=== PATIENT | male | born 1955 | race Caucasian/White ===

== ENCOUNTER 2025-06-11 09:14 | Emergency (ER) | payer BC, SELFPAY ==
[2025-06-11] VITALS (10 sets, daily range): BP systolic 176–191; BP diastolic 97–109; PULSE 49–55; RESP 6–18; TEMP 36.2; O2SAT 96–99; BMI 23.2
--- OUTSIDE RECORDS SUMMARY | 2025-06-11 09:16 | XMS_ITS | Clinical Summary ---
Author Organization [facility] Address [address] [place] [id number] Care Team Providers Care Banquet Waiter/Waitress Name Role Phone Unavailable Primary Care Provider Unavailabl e Allergies No known active allergies Medications losartan 50 mg tabletIndication s:HTN (hypertension) TAKE 1 TABLET(50 MG) BY MOUTH EVERY DAY 90 Tablet 03/22/2025 Active Active Problems Problem Noted Date Diagnosed Date History of cold sores 08/30/2014 Hyperplastic colon polyp 01/10/2011 Overview (01/10/2011): Colonoscopy 12/2010 polyp repeat in 10 years Encounters Date Type Department Care Team Description 03/21/2025 Refill [facility] [address] [place] [address] VotelRichardson MD Refill Request (Losartan) from Last 3 Months Immunizations Immunization Administration Dates Next Due AMB Influenza, IIV3 (Age >=3 years)(Flu Clinic Only) 08/18/2012,09/09/2008 AMB Influenza, IIV4 PF (=>6 mos Flulaval,Fluzone Fluarix)(Flu Clinic Only) 09/07/2019,09/13/2015,09/26/2014 COVID-19 VACCINE SPIKEVAX (M ODERNA 50MCG/0.5ML) 12YO+ PFS 08/29/2023 COVID-19 vaccine (Pfizer-Bio NTech 30mcg/0.3mL) 12YO+ SHYANNE-SUCROSE PF MDV 03/28/2022 Hepatitis A (Adult) 08/29/2023,08/23/2009 Influenza A (H1N1), Inactivated 08/29/2009 Influenza, IIV3 (Age >=3 years) 09/10/20 13,07/23/2010,09/03/2007,2005 Influenza, IIV4 09/24/2017,10/18/2016 Influenza, IIV4 (=>6mos) MDV 07/03/2020 Influenza, Inactivated AIIV4 (Age 65+ Years) Preserv Free 08/29/2023 Influenza, Inactivated IIV3 (Age 65+ Years) Preserv Free 10/22/2024 Influenza, Injectable, Mdck, Quadrivalent, W/preservative 07/10/2021 Influenza,CCIIV4 PRESERV FREE 07/02/2022 Tdap 03/28/2022,08/23/2009 Typhoid (injectable) 07/28/2009 Typhoid (oral) 09/09/2023 Yellow Fever 08/23/2009,09/02/2003 Zoster (Zostavax-ZVL, live) 09/10/2013 Social History Tobacco Use Types Packs/Day Years Used Date Smoking Tobacco: Never Smokeless Tobacco: Never Tobacco Cessation:Counseling Given: Yes Alcohol Use Standard Drinks/Week Comments Yes 0 (1 standard drink = 0.6 oz pur e alcohol) occ Social Connections Answer Date Recorded Do you often feel lonely or isolated from those around you? 0 11/11/2023 Financial Resource Strain Answer Date R ecorded Difficulty of Paying Living Expenses 3 11/11/2023 Difficulty of Paying Living Expenses Not on file 11/11/2023 Food Insecurity Answer Date Recorded Do you worry your food will run out before you are able to buy more? 1 11/11/2023 Transportation Needs Answer Date Record ed Does lack of transportation keep you from medica l appointments? 1 11/11/2023 Does lack of transportation keep you from work, meetings or getting things that you need? 1 11/11/2023 Housing Stability Answer Date Recorded What is your housing situation today? 1 11/11/2023 Utilities Answer Date Recorded Do you have trouble paying f or utilities (for example, heat, electricity, water, phone)? 1 11/11/2023 Sex and Gender Information Value Date Recorded Sex Assigned at Not on file Legal Sex Male 5:27 AM [employer] Gender Identity Not on file Sexual Orientation Not on file Obstetrics History Last Filed Vital Signs Vital Sign Reading Time Taken Comments Blood Pressure 127/77 11/11/2023 7:32 AM [employer] Pulse 66 11/11/2023 7:32 AM [employer] Temperature 36.4 C (97.6 F) 10/18/2016 8:30 AM [employer] Respiratory Rate - - Oxygen Saturation 98% 11/11/2023 7:32 AM [employer] Inhaled Oxygen Concentration - - Weight 75.9 kg (167 lb 4.8 oz) 11/11/2023 7:32 A M [employer] Height 180.1 cm (5' 10.9) 11/11/2023 7:32 AM CS T Body Mass Index 23.4 11/11/2023 7:32 AM [employer] Plan of Treatment Health Maintenance Due Date Last Done Comments Depression screening for age 12+ 1969 Hepatitis C screening for age 18-79 1975 Lipids for age 45-75 2002 Pneumococcal series for age 50+ (1 of 1 - PCV) 2007 Zoster (shingles) series for age 50+ (2 of 3) 11/05/2013 09/10/2013 Colonoscopy through age 75 01/10/2021 01/10/2011, COVID-19 vaccine series ( season) 2024 08/29/2023, 07/02/2022, 03/28/2022, Additional history exists BMI (ht and wt on same day) for age 18+ 11/11/2024 11/11/2023, 10/09/2023, 09/09/2023 Influenza Vaccine (#1) 2025 , 08/29/2023, 07/02/2022, Additional history exists Tetanus booster 03/28/2032 03/28/2022, 08/23/2009 RSV vaccine for adults or (1 - 1-dose 75+ series) 2032 Hepatitis B series for 19+ Aged Out N o longer eligible based on patient's age to complete this topic
--- NOTE | 2025-06-11 09:40 | CRLHL7_ITS ---
For Patients: As a result of the Century Cures Act, medical imaging exams and procedure reports are released immediately into your electronic medical record. You may view this report before your referring provider. If you have questions, please contact your health care provider. INDICATION: Chest pain TECHNIQUE: Chest 1 view COMPARISON: None FINDINGS: Cardiovascular and mediastinum: Heart size and vasculature are normal in caliber and appearance. Lungs and pleural spaces: Lungs are clear. No sign of infiltrate or mass. No sign of pleural effusion. No pneumothorax. Bones and soft tissues: No significant findings. IMPRESSION: No acute findings. Dictated by Myron Oh MD @ 06/11/2025 10:18:49 AM (Electronically Signed)
--- NOTE | 2025-06-11 09:52 | ED_ITS ---
HPI - Chest Pain General Chief Complaint: Chest Pain Stated Complaint: chest pain, jaw pain, heartburn Time Seen by Provider: 06/11/25 09:52 History of Present Illness HPI narrative: Patient is a 69-year-old gentleman with history of hypertension a very strong family history of heart disease who over last 24 hours is been unable to complete his normal bike ride of 13 miles. Yesterday he came home with chest pain radiating to his neck and jaw and right arm which improved with rest. He spent most of the evening belching last night and today he was set to start a 25 mi bike ride but had cut it off after 1 or 2 miles. Symptoms again reproducible with chest pain neck pain severe pressure in his chest. He brought to the emergency room where EKG initially shows some questionable ST segment elevation in 2 3 and V4 V5 V6. Patient's pain worsened in these became more pronounced. This does not yet meet criteria for STEMI. Patient has taken no medication to this point other than his usual losartan. Related Data Home Medications ?Medication ?Instructions ?Recorded ?Confirmed losartan 50 mg tablet 50 mg PO DAILY 12/07/2305/21 Previous Rx's ?Medication ?Instructions ?Recorded codeine 10 mg-guaifenesin 100 mg/5 5 ml PO Q6H #120 mL 12/14/23 mL oral liquid Held on 06/11/25. Instructions: Doctor's Order Allergies Allergy/AdvReac Type Severity Reaction Status Date / Time No Known Drug Allergies Allergy Verified 12/14/23 11:03 Review of Systems Status of ROS Reports: 10 or more systems reviewed and unremarkable except as noted in History and below [facility] Medical History Chest congestion ?R09.89 - Other specified symptoms and signs involving the circulatory and respiratory systems (ICD-10) Exam Narrative Exam Narrative: EXAM GENERAL: Patient appears comfortable and well. EYES: No scleral icterus. LYMPH: No supraclavicular or cervical lymphadenopathy. SKIN: Visible skin seen during exam normal or with benign process only. EXT: No dependent lower extremity pedal edema. HEART: Regular rate and rhythm with no murmurs, rubs, or gallops. LUNGS: Clear to auscultation bilaterally with no crackles or wheezes. ABD: Soft, non tender, non distended. PSYCH: Good eye contact, speech is not pressured. Const Vital Signs, click to edit/add: Vital Signs - 24 hr 06/11/25 09:31 06/11/25 09:34 06/11/25 09:49 Temperature 97.2 F L Pulse Rate 54 L 51 L Pulse Rate [Pulse Oximeter] 52 L Respiratory Rate 16 18 Blood Pressure [Left Upper Arm] 191/109 H Pulse Oximetry 97 98 97 Oxygen Delivery Method Room Air 06/11/25 10:00 Temperature Pulse Rate 49 L Pulse Rate [Pulse Oximeter] Respiratory Rate 10 L Blood Pressure [Left Upper Arm] Pulse Oximetry 99 Oxygen Delivery Method Course Course ED Course: I am concerned by the initial EKGs but I do not think we need STEMI activation until we get our labs back initially. Review the case with Cardiology. Standard cardiac workup is ordered. Reevaluation(s) Reevaluation #1: Patient's troponin comes back at 0.27. Aspirin 325 given. EKGs faxed to Cardiology. Consultation pending. Vital Signs Vital signs: Initial Vital Signs Temperature 97.2 F L 06/11/25 09:31 Temperature Source Temporal Artery Scan 06/11/25 09:31 Pulse Rate 52 L 06/11/25 09:31 Respiratory Rate 16 06/11/25 09:31 Blood Pressure 191/109 H 06/11/25 09:31 Blood Pressure Mean 136 H 06/11/25 09:31 Pulse Oximetry 97 06/11/25 09:31 Oxygen Delivery Method Room Air 06/11/25 09:31 Vital Signs Temperature 97.2 F L 06/11/25 09:31 Pulse Rate 52 L 06/11/25 09:31 Respiratory Rate 16 06/11/25 09:31 Blood Pressure 191/109 H 06/11/25 09:31 Pulse Oximetry 97 06/11/25 09:31 Oxygen Delivery Method Room Air 06/11/25 09:31 Temperature 97.2 F L 06/11/25 09:31 Pulse Rate 49 L 06/11/25 10:00 Respiratory Rate 10 L 06/11/25 10:00 Blood Pressure 191/109 H 06/11/25 09:31 Pulse Oximetry 99 06/11/25 10:00 Oxygen Delivery Method Room Air 06/11/25 09:31 Medications Administered Medications: Generic Name Dose Route Start Last Admin Trade Name Freq PRN Reason Stop Dose Admin Aspirin 324 mg 06/11/25 10:39 06/11/25 10:46 Aspirin 81 Mg Tab.Chew PO 06/11/25 10:40 324 mg ONCE ONE Administration MDM - Chest Pain MDM Narrative Medical decision making narrative: Patient presents with acute coronary syndrome with symptoms starting yesterday. The patient initially had some questionable ST changes. I did repeat the EKG in the lateral ST segment elevation seem to Flattening. I reviewed these with Cardiology at this time patient is being sent directly to the laborer pipelines. Troponin has been found to be 0.27. He has been given aspirin 325 will be started on weight based heparin. His pulse is 55 no beta-jas to be given. Patient will be transferred via EMS. Lab Data Labs: Lab Results 06/11/25 Range/Units 09:45 WBC 6.31 (4.50-11.00) K/uL RBC 4.55 (4.30-5.90) m/uL Hgb 14.1 (13.5-17.5) gm/dL Hct 41.7 (37.0-53.0) % MCV 92 (80-100) fL MCH 31 (26-34) pg MCHC 34 (32-36) gm/dL RDW Coeff of Brian 12.8 (11.5-15.5) % Plt Count 166 (140-440) K/uL Neut % (Auto) 73.0 H (42.0-72.0) % Lymph % (Auto) 15.7 L (20-44) % Newton % (Auto) 8.2 (0.0-11.0) % Eos % (Auto) 2.4 (0.0-7.0) % Baso % (Auto) 0.5 (0.0-3.0) % Neut # (Auto) 4.60 (1.7-7.0) K/uL Lymph # (Auto) 1.00 (0.90-2.90) K/uL Newton # (Auto) 0.50 (0.00-0.90) K/UL Eos # (Auto) 0.15 (0.00-0.50) K/uL Baso # (Auto) 0.03 (0.00-0.30) K/uL Abs Immat Gran (auto) 0.01 (0.00-0.30) K/uL Imm/Tot Granulo (auto) 0.2 % D-Dimer Quant (PE/DVT) < 0.27 (0.00-0.50) ug/ml Sodium 137 (135-149) mmol/L Potassium 4.1 (3.6-5.1) mmol/L Chloride 104 (96-114) mmol/L Carbon Dioxide 26 (20-32) mmol/L Anion Gap 7 (7-15) mEq/L BUN 22 (7-30) mg/dL Creatinine 1.0 (0.5-1.5) mg/dL Estimated Creat Clear 78.64 Estimated GFR 82 ml/min Glucose 140 H (60-115) mg/dL Calcium 9.2 (8.4-10.6) mg/dL Total Bilirubin 0.6 (0.1-1.5) mg/dL AST 33 (12-35) U/L ALT 26 (4-50) U/L Alkaline Phosphatase 66 (40-150) U/L Troponin I 0.27 H* (0.01-0.04) ng/mL Total Protein 7.3 (6.0-8.3) g/dL Albumin 4.3 (3.3-5.0) g/dL Discharge Plan Discharge Clinical Impression: Myocardial infarction Patient Disposition: Home, Self-Care Condition: Stable Activity Level: Other Discharge Diet: Other Prescriptions: No Action losartan 50 mg tablet 50 mg PO DAILY codeine-guaifenesin 10-100 mg/5 mL liquid 5 ml PO Q6H Qty: 120 0RF Follow Up/Referrals: Provider,Not a Local [Primary Care Provider, Family Practice] Stand Alone Forms: MyHealth Info Instructions
[2025-06-11 09:55] LABS: Hematocrit 41.7 % (37.0-53.0); Hemoglobin* 14.1 gm/dL (13.5-17.5); Immature Granulocytes Abs Auto 0.01 K/uL (0.00-0.30); Immature Granulocytes Pct Auto 0.2 %; Lymphocytes Absolute Auto 1.00 K/uL (0.90-2.90); Mean Corpuscular HGB Conc 34 gm/dL (32-36); Mean Corpuscular Hemoglobin 31 pg (26-34); Mean Corpuscular Volume 92 fL (80-100); RDW Coefficient of Variation % 12.8 % (11.5-15.5); Red Blood Count 4.55 m/uL (4.30-5.90); Slide Review Reflex No; White Blood Count* 6.31 K/uL (4.50-11.00)
[2025-06-11 10:06] LABS: Albumin* 4.3 g/dL (3.3-5.0); Chloride* 104 mmol/L (96-114); Potassium* 4.1 mmol/L (3.6-5.1); Sodium* 137 mmol/L (135-149)
[2025-06-11 10:09] LABS: Alanine Aminotransferase* 26 U/L (4-50); Alkaline Phosphatase* 66 U/L (40-150); Anion Gap 7 mEq/L (7-15); Aspartate Amino Transferase* 33 U/L (12-35); Bilirubin Total* 0.6 mg/dL (0.1-1.5); Blood Urea Nitrogen* 22 mg/dL (7-30); Calcium* 9.2 mg/dL (8.4-10.6); Carbon Dioxide* 26 mmol/L (20-32); Creatinine* 1.0 mg/dL (0.5-1.5); Est. Creatinine Clearance* 78.64; Estimated Glomerular Filt Rate 82 ml/min; Glucose* 140 mg/dL (60-115); Total Protein* 7.3 g/dL (6.0-8.3)
[2025-06-11 10:21] LABS: D Dimer Quantitative* < 0.27 ug/ml (0.00-0.50)
[2025-06-11] MEDS: ASPIRIN 81 MG TAB.CHEW 324 MG PO (10:46)
[2025-06-11] MEDS: HEPARIN 5,000 UNIT/0.5 ML INJ 4000 UNIT IVP (11:00)
[2025-06-11] MEDS: HEPARIN 25,000 UNIT/500 ML BAG 0.4 UNIT IV (11:02)
== END 2025-06-11 11:43 | disposition short-term general hospital (02) ==
PROVIDERS: Emergency Provider Internal Medicine
DX: I21.9 Acute myocardial infarction, unspecified (principal)
CPT/HCPCS: 36415; 71045; 80053; 84484; 85025; 85379; 85610; 85730; 93005; 99284; 99285; 99291; A9270; J1644

== ENCOUNTER 2025-06-11 11:33 | Outpatient (CLI) | payer BC, SELFPAY | END 2025-06-11 11:34 | disposition home or self-care (01) | LOC: AMB 06-27 09:38 | PROVIDERS: Visit Provider Internal Medicine | DX: I21.9 Acute myocardial infarction, unspecified (principal) | CPT/HCPCS: A0425; A0427 ==